=== PATIENT | female | born 1955 | race Hispanic/Latino ===

== ENCOUNTER 2017-06-15 17:57 | Inpatient (IN) | payer BC, OTHER ==
[~2017-06-15] VITALS: Ht 157.5 cm; Wt 92.5 kg
[~2017-06-15 17:57] MED LIST: GLIP1TAB4 PO; LEVO25TA54 PO; LISI-617 PO; OMEP40CA37 PO
[2017-06-15 18:27] VITALS: BP 161/79
[2017-06-15 19:27] LABS: HEMATOCRIT 35.8 % (36-48); MEAN CORPUSCULAR HEMOGLOBIN 28.7 pg (27.0-33.0); MEAN CORPUSCULAR HGB CONC 34.7 g/dL (32.0-36.0); MEAN CORPUSCULAR VOLUME 82.7 fL (79-99); PLATELET COUNT (AUTO) 209 K/uL (130-400); RED BLOOD CELL COUNT(AUTO) 4.33 MIL/uL (4.00-5.50); RED CELL DISTRIBUTION WIDTH 14.5 % (11.0-15.5); WHITE BLOOD COUNT (AUTO) 5.9 K/uL (4.8-10.8)
[2017-06-15 19:31] LABS: INR 0.97 (0.85-1.15); PARTIAL THROMBOPLASTIN TIME 25.9 SEC (26.3-35.5); PROTHROMBIN TIME 10.2 SEC (9.6-11.6)
[2017-06-15 19:34] LABS: ALBUMIN 3.5 g/dL (3.5-5.0); BILIRUBIN,TOTAL 0.4 mg/dL (0.2-1.0); POTASSIUM 3.5 mmol/L (3.5-5.1); TOTAL PROTEIN, SERUM 6.8 g/dL (6.0-8.3)
[2017-06-15 19:35] VITALS: BP 145/58
[2017-06-15] MEDS ORDERED: NITROGLYCERIN 0.4 MG SL TAB SL PRN (19:45)
[2017-06-15] MEDS ORDERED: SODIUM CHLORIDE 0.9% 10 ML VIAL IVP PRN (19:45)
[2017-06-15 23:38] VITALS: BP 144/79
[2017-06-16] VITALS (11 sets, daily range): BP systolic 109–150; BP diastolic 63–79
[2017-06-16] MEDS ORDERED: HYDRALAZINE HCL 20 MG/ML VIAL IV PRN (00:30)
[2017-06-16] MEDS ORDERED: POTASSIUM CHLORIDE 20 MEQ ERTAB PO PRN ×2 (00:30)
[2017-06-16] MEDS ORDERED: LIDOCAINE HCL-MPF 1% 2ML VIAL IVP PRN ×2 (00:30)
[2017-06-16] MEDS ORDERED: POTASSIUM CHLORIDE 20MEQ/100ML 100 ML IV PRN ×2 (00:30)
[2017-06-16] MEDS ORDERED: POTASSIUM CHLORIDE 10% ELIXIR 20 MEQ/15 ML UDCUP PO PRN ×2 (00:30)
[2017-06-16] MEDS ORDERED: ONDANSETRON HCL 4 MG/2 ML VIAL IV PRN (00:30)
[2017-06-16] MEDS: SODIUM CHLORIDE 0.9% 1000ML 1,000 ML IV SCH ×2 (01:53→12:08)
[2017-06-16 04:38] LABS: HEMATOCRIT 36.6 % (36-48); MEAN CORPUSCULAR HEMOGLOBIN 28.8 pg (27.0-33.0); MEAN CORPUSCULAR HGB CONC 34.5 g/dL (32.0-36.0); MEAN CORPUSCULAR VOLUME 83.5 fL (79-99); PLATELET COUNT (AUTO) 189 K/uL (130-400); RED BLOOD CELL COUNT(AUTO) 4.39 MIL/uL (4.00-5.50); RED CELL DISTRIBUTION WIDTH 14.4 % (11.0-15.5); WHITE BLOOD COUNT (AUTO) 5.8 K/uL (4.8-10.8)
[2017-06-16 04:58] LABS: CREATININE 0.8 mg/dL (0.5-1.5); POTASSIUM 4.3 mmol/L (3.5-5.1); THYROID STIMULATING HORMONE 7.11 uIU/mL (0.36-3.74)
[2017-06-16 05:14] LABS: HEMOGLOBIN A1C 7.9 % (4.0-6.0)
[2017-06-16 06:02] LABS: APPEARANCE,URINE Clear (CLEAR); BILIRUBIN,URINE Negative (NEGATIVE); COLOR,URINE Yellow (YELLOW); GLUCOSE, URINE (UA) Negative (NEGATIVE); KETONES,URINE Negative (NEGATIVE); LEUKOCYTE ESTERASE ,URINE Trace (NEGATIVE); NITRATE,URINE Negative (NEGATIVE); OCCULT BLOOD,URINE Negative (NEGATIVE); PH,URINE 5.5 (5.0-8.0); PROTEIN,URINE Negative (NEGATIVE); UROBILINOGEN,URINE 0.2 mg/dL (0.2-1.0)
[2017-06-16 06:12] LABS: BACTERIA,URINE None Seen /HPF (None Seen); RBC,URINE None Seen /HPF (0-1); SQUAMOUS EPITHELIAL CELL,UR Few /LPF (0-2); WBC,URINE 0-1 /HPF (0-1)
[2017-06-16] MEDS ORDERED: DEXTROSE 50%-WATER 50 ML DISP.SYRIN IV PRN ×2 (06:30→15:45)
[2017-06-16] MEDS ORDERED: GLUCAGON 1MG KIT 1 MG ML IM PRN ×2 (06:30→15:45)
[2017-06-16] MEDS: INSULIN HUMULIN R 100 UNIT/ML 3ML SQ SCH ×4 (07:30→21:18)
[2017-06-16] MEDS: ASPIRIN 81MG TAB.CHEW PO SCH (08:20)
[2017-06-16] MEDS: METOPROLOL TARTRATE 25 MG TAB PO SCH (08:20)
[2017-06-16] MEDS: LISINOPRIL 5 MG TABLET PO SCH (08:21)
[2017-06-16] MEDS ORDERED: NITROGLYCERIN 5 MG/ML 10 ML VIAL IV ONE (14:59)
[2017-06-16] MEDS ORDERED: IOPAMIDOL-370 100 ML VIAL IV ONE ×2 (14:59→15:31)
[2017-06-16] MEDS ORDERED: LIDOCAINE HCL 2% 20ML ONE (15:00)
[2017-06-16] MEDS ORDERED: ISOVUE-370 50ML VIAL IV ONE (15:00)
[2017-06-16] MEDS ORDERED: BIVALIRUDIN 250 MG/VIAL IV ONE (15:14)
[2017-06-16] MEDS ORDERED: MORPHINE SULFATE 4 MG/1ML SYG ONE (15:22)
[2017-06-16] MEDS ORDERED: MIDAZOLAM HCL 1 MG/ML 2ML VIAL ONE (15:24)
[2017-06-16] MEDS ORDERED: SODIUM CHLORIDE 0.9% 1000ML 1,000 ML IV SCH (15:42)
[2017-06-17 04:00] VITALS: BP 125/58
[2017-06-17 04:39] LABS: CREATININE 0.9 mg/dL (0.5-1.5)
[2017-06-17] MEDS: INSULIN HUMULIN R 100 UNIT/ML 3ML SQ SCH ×3 (05:37→16:30)
[2017-06-17 07:01] VITALS: BP 132/75
[2017-06-17] MEDS: METOPROLOL TARTRATE 25 MG TAB PO SCH (08:28)
[2017-06-17] MEDS: ASPIRIN 81MG TAB.CHEW PO SCH (08:28)
[2017-06-17] MEDS: LISINOPRIL 5 MG TABLET PO SCH (08:28)
[2017-06-17] MEDS: SODIUM CHLORIDE 0.9% 1000ML 1,000 ML IV SCH (08:33)
[2017-06-17] MEDS ORDERED: ASPI-1005 PO (09:48)
[2017-06-17] MEDS ORDERED: SIMV20TA6 PO (09:48)
[2017-06-17] MEDS ORDERED: METO25 PO (09:48)
[2017-06-17 11:40] VITALS: BP 115/73
[2017-06-17 16:18] VITALS: BP 118/74
[2017-06-17 20:08] VITALS: BP 146/74
== END 2017-06-17 20:35 | disposition home or self-care (01) | DRG 287 ==
LOC: EDH 17:57 → 2DH 17:58
PROVIDERS: ADMIT Family Medicine; ATTEND Family Medicine
PROC: 4A023N7 Measurement of Cardiac Sampling and Pressure, Left Heart, Percutaneous Approach (ICD-10-PCS; principal; 2017-06-16)
PROC: B2111ZZ Fluoroscopy of Multiple Coronary Arteries using Low Osmolar Contrast (ICD-10-PCS; 2017-06-16)
PROC: B2151ZZ Fluoroscopy of Left Heart using Low Osmolar Contrast (ICD-10-PCS; 2017-06-16)
DX: I25.110 Atherosclerotic heart disease of native coronary artery with unstable angina pectoris (principal); E11.65 Type 2 diabetes mellitus with hyperglycemia; E03.9 Hypothyroidism, unspecified; E78.5 Hyperlipidemia, unspecified; I10 Essential (primary) hypertension; Z82.49 Family history of ischemic heart disease and other diseases of the circulatory system; Z90.710 Acquired absence of both cervix and uterus; Z90.5 Acquired absence of kidney
CPT/HCPCS: 36415; 71045; 80048; 80053; 81001; 82948; 83036; 84443; 85027; 85610; 85730; 86677; 93458; 99152; 99153; C1760; C1894; J0583; J1644; J1815; J2250; J2270; J3490; J7030; Q9967

== ENCOUNTER 2022-02-05 12:55 | Emergency (ER) | payer MEDICARE ==
[~2022-02-05] VITALS: Ht 157.5 cm; Wt 96.6 kg
[~2022-02-05 12:55] MED LIST changes: +ASPI-1005 PO; -LISI-617 PO; +LISI5TAB21 PO; +METO25 PO; +OMEP40CA21 PO; -OMEP40CA37 PO; +SIMV-43 PO
[2022-02-05] MEDS ORDERED: ACETAMINOPHEN 500 MG TABLET PO ONE (13:30)
[2022-02-05] MEDS ORDERED: IBUPROFEN 800 MG TAB PO ONE (13:30)
[2022-02-05] MEDS ORDERED: OSELTAMIVIR PHOSPHATE 75 MG CAP PO SCH (13:30)
[2022-02-05] MEDS ORDERED: D-ME1POW16 PO (14:51)
[2022-02-05 15:03] VITALS: BP 128/70
== END 2022-02-05 15:10 | disposition home or self-care (01) ==
LOC: EDH 12:55
DX: U07.1 COVID-19 (principal); J06.9 Acute upper respiratory infection, unspecified; J44.9 Chronic obstructive pulmonary disease, unspecified; E11.9 Type 2 diabetes mellitus without complications; I10 Essential (primary) hypertension; Z79.899 Other long term (current) drug therapy; Z79.84 Long term (current) use of oral hypoglycemic drugs; Z79.82 Long term (current) use of aspirin; Z98.890 Other specified postprocedural states; Z88.2 Allergy status to sulfonamides; Z88.1 Allergy status to other antibiotic agents
CPT/HCPCS: 99284; 71045; 87635; 87804 ×2; C9803